=== PATIENT | female | born 1990 | race Caucasian/White ===

== ENCOUNTER 2025-06-16 14:01 | Outpatient (AMB) | payer OTHER, SELFPAY ==
--- NOTE | 2025-06-16 14:03 | MHC.OFFVIS ---
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 She has been having headaches for number of years. Her mother sometime suffered from headaches. More recently, she was having a headache almost daily. Pain was almost always on left side of the head around the eye, pressure type, moderate to very severe, associated with watering of high and droopiness of eyelid. She had tried hemc-rbv-pukurxc medicines including Tylenol and Excedrin without relief. More recently, she tried sumatriptan, which if taken early in the course of headache worked but not every time. Without medicine, her headache could continue until next day. Exposure to light made her headache worse. She also reported dizziness nausea and difficulty finding words. Other than sumatriptan, she had not tried any preventive medicine on regular basis but I would noted that she checked out verapamil on the paper given to her. She used to have Botox for cosmetic reason and reported that during that time headaches were much better. She was wondering if that could be done again. [facility] Medical History (Updated 06/16/25 @ 16:34 by Dexter Ponce MD) IBS (irritable bowel syndrome) Genital herpes Anxiety Migraine Review of Systems Const Details: Constitutional:?No fever, chills, fatigue, weight loss, or night sweats. HEENT:?No vision changes, hearing loss, nasal congestion, sore throat. Cardiovascular:?No chest pain, palpitations, orthopnea, PND, or leg swelling. Respiratory:?No cough, shortness of breath, wheezing, or hemoptysis. Gastrointestinal:?No nausea, vomiting, abdominal pain, diarrhea, or constipation. Genitourinary:?No dysuria, frequency, incontinence, or hematuria. Musculoskeletal:?No joint pain, stiffness, weakness, or muscle aches. Neurological:? Frequent headaches. Psychiatric:?No anxiety, depression, mood swings, sleep disturbance, or hallucinations. Endocrine:?No heat/cold intolerance, polydipsia, polyuria, or hair/skin changes. Hematologic/Lymphatic:?No easy bruising, bleeding, or lymphadenopathy. Integumentary (Skin):?No rash, lesions, itching, or color changes. Allergic/Immunologic:?No seasonal allergies, hives, or recurrent infections. Physical Exam Neuro Other: Mental Status: Alert and oriented to person, place, and time. Normal attention. Normal spontaneous speech, fluency, and comprehension. No obvious issues with mood and memory. Affect is appropriate. Cranial Nerves: CN II: Visual corrales full to confrontation, visual acuity intact. CN III, IV, : Pupils equal, round, reactive to light and accommodation. Extraocular movements are normal. CN V: Facial sensation is normal. CN VII: Facial movements symmetrical. CN VIII: Hearing intact to bedside conversation is normal. CN IX, X: Palate elevates symmetrically. CN XI: Shoulder shrug and head turn symmetrical. CN XII: Tongue midline without atrophy or fasciculations. Motor: Bulk and tone normal in all extremities. No significant muscle weakness in arms and legs. No drift. Reflexes: Deep tendon reflexes 2+ and symmetric. Plantar response down-going bilaterally. Coordination: Savizb-eq-orru and tgtr-pl-hwzf testing normal. No dysmetria. Gait and Station: No obvious gait abnormality. No ataxia or instability. Extrapyramidal: Full facial expressions and blinking. No rigidity. Movements are appropriate with no tremor or abnormality. Speech: Normal; no dysarthria or tremor. Assessment & Plan Assessment & Plan (1) Migraine without aura: Code(s): G43.009 - Migraine without aura, not intractable, without status migrainosus Category: Medical Qualifiers: Status migrainosus presence: without status migrainosus Intractability: intractable Qualified Code(s): G43.019 - Migraine without aura, intractable, without status migrainosus Plan Impression: Chronic migraine without aura Recommendations: 1. Reassurance and education. Detailed overview of migraine was provided. 2. Propranolol 20 mg in the morning with breakfast 3. She may continue to use sumatriptan as needed I discussed with the patient the likely diagnosis of migraines with some cluster headache characteristics. The treatment options included daily use of Propranolol for migraine prophylaxis and Sumatriptan for acute management. I explained the benefits and possible side effects of Propranolol, particularly in the context of her previous -induced hypertension. We discussed dietary considerations and the role of lifestyle modifications in managing her headaches. I informed her about the option of Botox should her symptoms not improve with current therapies and that this might be a more suitable consideration under supervision if other options are exhausted. Follow-up in four weeks was planned with nurse practitioner Lucy for evaluation of the treatment response. Medications: New propranolol 20 mg orally one a day with breakfast; 90 tabs 0RF Coding Level of Care Code New Pt Level 4 (97012) Diagnoses Intractable migraine without aura and without status migrainosus G43.019 Status migrainosus presence: without status migrainosus Intractability: intractable
--- OUTSIDE RECORDS SUMMARY | 2025-06-16 17:46 | XMS_ITS | Clinical Summary ---
Author Organization [facility] Address [address] [place] [id number] Care Team Providers Care Attending Ambulatory Care Name Role Phone Dinora Riggs Primary Care Provider [phone] Allergies No known active allergies Medications ofloxacin (OCUFLOX) 0.3 % ophthalmic solutionIndicat ions:Abrasion of right cornea, initial encounter Administer 1 drop to the right eye 4 (four) times a day. 5 mL 4 Active Additional Information Patient not taking.Reported on 05/16/2025 aspirin enteric coated (ECOTRIN LOW STRENGTH) 81 MG EC tablet Take 162 mg by mouth. Active pyridoxine (VITAMIN B-6) 100 MG tablet Take 100 mg by mouth daily. Active vitamin with iron and folic acid ( PLUS) 27-1 MG Tab Take 1 tablet by mouth daily. Active fluticasone (FloNASE) 50 mcg/spray nasal spray 1 spray into each nostril daily. Active amoxicillin-cla vulanate (AUGMENTIN) 875-125 MG per tabletIndicatio ns:Acute pharyngitis, unspecified etiology Take 1 tablet by mouth 2 (two) times a day. 20 tablet 05/26/20 25 Active Problems No known active problems Encounters Date Type Department Care Team Description 05/16/2025 6:30 PM EDT Office Visit [facility] [address] [phone] Jose Alberto Nair MD Riofrio, Tahir Naranjo PA-C Acute pharyngitis, unspecified etiology (Primary Dx); Acute sore throat 05/16/2025 Travel from Last 3 Months Social History Tobacco Use Types Packs/Day Years Used Date Smoking Tobacco: Never Smokeless Tobacco: Never Tobacco Cessation:Counseling Given: Not Answered Comments Unknown Sex and Gender Information Value Date Recorded Sex Assigned at Not on file Legal Sex Female 8:07 AM EDT Gender Identity Not on file Sexual Orientation Not on file Last Filed Vital Signs Vital Sign Reading Time Taken Comments Blood Pressure 131/89 05/16/2025 6:45 PM EDT Pulse 65 05/16/2025 6:45 PM EDT Temperature 37.1 C (98.7 F) 05/16/2025 6:45 PM EDT Respiratory Rate 19 05/16/2025 6:45 PM EDT Oxygen Saturation 97% 05/16/2025 6:45 PM EDT Inhaled Oxygen Concentration - - Weight 81.6 kg (180 lb) 05/16/2025 6:45 PM EDT Height 175.3 cm (5' 9 ) 05/16/2025 6:45 PM EDT Body Mass Index 26.58 05/16/2025 6:45 PM EDT Plan of Treatment Health Maintenance Due Date Last Done Comments Hepatitis C Virus Screening 1992 HIV Screening 2005 DTaP/Tdap/Td Vaccines (1 - Tdap) 2011 Hepatitis B Vaccines (1 of 3 - 19+ 3-dose series) 2011 Pap Smear (Ages 21-65) 2013 Influenza Vaccine 04/01/2025 06/09/2024, , 06/14/2022, Additional history exists COVID-19 Vaccine ( - season) 2025 10/11/2020, 09/15/2020 HPV Vaccines (No Doses Required) Completed Pneumococcal Vaccine: Pediatric (0-5 Years) and At-Risk Patients (6 to 49 Years) Aged Out No longer eligible based on patient's age to complete this topic Procedures Procedure Name Priority Date/Time Associated Diagnosis Comments THROAT CULTURE (GROUP A, C AND G STREP) Routine 05/16/2025 7:16 PM EDT Acute pharyngitis, unspecified etiology POCT RAPID STREP A Routine 05/16/2025 7: 09 PM EDT Acute sore throat from Last 3 Months Results * Throat Culture (Group A, C and G Strep) (05/16/2025 7:16 PM EDT) Throat Culture SEE NOTE C-Note Comment: CULTURE, THROAT Micro Number: [id number] Test Status: Final Specimen Source: Throat Specimen Quality: Adequate Result: No oropharyngeal pathogens recovered. 05/16/2025 7:16 PM EDT 05/17/2025 11:29 AM EDT Tahir Muhammad PA-C LAB AMB MICRO ORDERABLES Final Result [employer] [address] [place] [phone] * POCT Rapid Strep A (05/16/2025 7:09 PM EDT) Rapid Strep A Screen Negative Negative Lot Number [id number] Siding [employer]ator Pass Pass [facility]roat 05/16/2025 7:09 PM EDT Tahir Muhammad PA-C POINT OF CARE TEST ORDER SARA Final Result from Last 3 Months Insurance [facility] Care Teams Attending Ambulatory Care Relationship Specialty Start Date End Date Dinora Riggs PA [address] [place] [phone] PCP - General General Medicine 09/04/24
--- OUTSIDE RECORDS SUMMARY | 2025-06-16 17:46 | XMS_ITS | Encounter Summary ---
Author Organization [facility] Address [address] [place] [address] Care Team Providers Care Restaurant Team Member Name Role Phone Dinora Riggs Primary Care Provider [phone] Encounter Details Date Type Department Care Team (Late st Contact Info) Description 09/04/2024 Scanned Document [address] [place] [phone] Provider, Generic Social History Tobacco Use Types Packs/Day Years Used Date Smoking Tobacco: Never Smokeless Tobacco: Never Comments Yes Sex and Gender Information Value Date Recorded Sex Assigned at Not on file Legal Sex Female 8:07 AM EDT Gender Identity Not on file Sexual Orientation Not on file documented as of this encounter Plan of Treatment Not on file documented as of this encounter Visit Diagnoses Not on filedocumented in this encounter Care Teams Restaurant Team Member Relationship Specialty Start Date End Date Dinora Riggs PA [address] [place] [phone] PCP - General General Medicine 09/04/24 documented as of this encounter
--- OUTSIDE RECORDS SUMMARY | 2025-06-16 17:46 | XMS_ITS | Encounter Summary ---
Author Organization [facility] Address [address] [place] [address] Care Team Providers Care Military Analyst Name Role Phone Dinora Riggs Primary Care Provider [phone] Encounter Details Date Type Department Care Team (Late st Contact Info) Description 09/04/2024 Scanned Document [address] [place] [phone] Provider, Generic Social History Tobacco Use [...] on filedocumented in this encounter Care Teams Military Analyst Relationship Specialty Start Date End Date Dinora Riggs PA [address] [place] [phone] PCP - General General Medicine 09/04/24 documented as of this encounter
--- OUTSIDE RECORDS SUMMARY | 2025-06-16 17:46 | XMS_ITS ---
Author Name [facility] Organization Unknown Care Team Organization Name Specialty Phone Email Start Date End Da te [facility] Termed, PROVIDER Primary Care 07/09/202204/01
== END 2025-06-16 14:54 | disposition home or self-care (01) ==
PROVIDERS: Visit Provider Psychiatry & Neurology Neurology
DX: G43.019 Migraine without aura, intractable, without status migrainosus (principal)
CPT/HCPCS: 99204

== ENCOUNTER 2025-08-05 15:56 | Outpatient (AMB) | payer OTHER, SELFPAY ==
--- NOTE | 2025-08-05 16:10 | A.OFFVIS_ITS ---
Intake Visit Reasons: Migraine Allergies No Known Allergies Allergy (Verified 06/15/25 10:10) HPI Comments Details: Juany is a 35-year-old female patient with a past medical history of anxiety and IBS who I am meeting for the 1st time today via [email or web address] for a headache follow up. She was last seen on 06/16/[address] Ponce and offered propranolol for her migraines however she has tried propranolol in the past and never did start therapy. She tells me today that she has been dealing with migraines for a very long time including her teenage and early 20s. Her migraines are occurring 5-7 days per week most often lasting up to 6 hours but have in the past lasted up to 2 days. Her migraines are generally around the left eye and frontal area and can be moderate to severe in intensity and dull or aching but at times when they are severe can be very sharp. She will sometimes have drooping of her left eye and sensation of pressure around the left eye. She does have nausea when headaches become severe. She can also experience blurry vision with spots in her vision but does not experience any visual auras leading up to her headaches. She has tried several therapies in the past none of which has been overly beneficial. She does note that she has tried cosmetic Botox in the past which was the only time she ever had any relief from her headaches. She is no longer getting cosmetic Botox as she did stop 4 pregnancies in the past and did not feel the need to continue with cosmetic Botox therapy. She would however like to explore it as an option for her migraines. Past medication trials: Propranolol- no benefit Topiramate-possible increase in headaches and dizziness Amitriptyline- no benefit Sumatriptan -no benefit [facility] Medical History (Updated 08/05/25 @ 16:17 by Lucy Loaiza CNP) IBS (irritable bowel syndrome) Genital herpes Anxiety Migraine Review of Systems Const All systems reviewed & are unremarkable except as noted in HPI and below Neuro Denies Abnormal speech present Physical Exam Const General: cooperative, healthy appearing, comfortable, no acute distress, alert and awake Orientation/consciousness: patient oriented x3 Neuro General: patient oriented x3 Cranial nerves: Yes Bilaterally intact EOM present Cognition (Neuro): normal cognition Speech: No Abnormal speech present Telehealth Telehealth Telehealth Platform: [facility] Location of provider rendering services: practice address Location of patient: address on file Patient Identification confirmed using: Name, : Yes Telehealth method: video Patient verbally consented to treatment: Yes Patient verbally consented to billing insurance company: Yes Patient informed of any privacy concerns related to visit: Yes Minutes spent on Phone/Video with Pt.: 30 Assessment & Plan Assessment & Plan (1) Chronic migraine without aura without status migrainosus, not intractable: Code(s): G43.709 - Chronic migraine without aura, not intractable, without status migrainosus Category: Medical Plan Juany is a 35-year-old female patient with a past medical history of anxiety and IBS who I am meeting for the 1st time today via tele [employer] for a headache follow up. She has tried several option for therapy in the past as listed above. She has had only some benefit in the past with cosmetic Botox though is no longer using cosmetic Botox and has not for 1 year. This was the only time that she has ever had any partial relief of her headaches. She would like to try it indicated specifically for migraine as she has failed several therapies in the past and knows that the Botox has worked. I did also offer once monthly anti CGRP therapies as an alternative though she opted to move forward with Botox therapy given that she has had some benefit within in the past. For abortive therapy, she failed the sumatriptan and therefore I will try her on rizatriptan 10 mg as needed - trial of rizatriptan 10 mg as needed for acute therapy - start prior authorization process for Botox therapy indicated for chronic mi graine Coding Level of Care Code Tele Est Pt Level 4 (96317) Diagnoses Chronic migraine without aura without status migrainosus, not intractable G43.709
--- OUTSIDE RECORDS SUMMARY | 2025-08-05 19:45 | XMS_ITS | Encounter Summary ---
Author Organization [facility] Address [address] [place] [address] Care Team Providers Care Housing Liaison Name Role Phone Dinora Riggs Primary Care Provider [phone] Encounter Details Date Type Department Care Team (Late st Contact Info) Description 09/04/2024 Scanned Document [address] [place] [phone] Provider, Generic Social History Tobacco Use [...] on filedocumented in this encounter Care Teams Housing Liaison Relationship Specialty Start Date End Date Dinora Riggs PA [address] [place] [phone] PCP - General General Medicine 09/04/24 documented as of this encounter
--- OUTSIDE RECORDS SUMMARY | 2025-08-05 19:45 | XMS_ITS | Clinical Summary ---
Author Organization [facility] Address [address] [place] [id number] Care Team Providers Care Lumber Planer Name Role Phone Dinora Riggs Primary Care Provider [phone] Allergies No known active allergies Medications ofloxacin (OCUFLOX) 0.3 % ophthalmic solutionIndicat ions:Abrasion of right cornea, initial encounter Administer 1 drop to the right eye 4 (four) times a day. 5 mL Active Additional Information Patient not taking.Reported on [...] 1 spray into each nostril daily. Active Active Problems No known active problems Encounters Date Type Department Care Team Description 05/16/2025 6:30 PM EDT Office Visit [facility] [address] [phone] Jose Alberto Nair MD Riofrio, Andrew Ted, PA-C Acute pharyngitis, unspecified etiology (Primary Dx); Acute sore throat from Last 3 Months Social History Tobacco [...] 7:16 PM EDT) Throat Culture SEE NOTE [employer] Comment: CULTURE, THROAT Micro Number: [id number] Test Status: Final Specimen Source: Throat Specimen Quality: Adequate Result: No oropharyngeal pathogens recovered. 05/16/2025 7:16 PM EDT 05/17/2025 11:29 AM EDT Tahir Muhammad PA-C LAB AMB MICRO ORDERABLES Final Result [employer] [facility] [address] [place] [phone] * POCT Rapid Strep A (05/16/2025 7:09 PM EDT) [facility] Rapid Strep A Screen Negative Negative Lot Number [id number] Handbook Writer Pass Pass [facility] 05/16/2025 7:09 PM EDT Tahirjayda Muhammad PA-C POINT OF CARE TEST ORDER SARA Final Result from Last 3 Months Insurance [facility] Care Teams Lumber Planer Relationship Specialty Start Date End Date Dinora Riggs PA [address] [place] [phone] PCP - General General Medicine 09/04/24
--- OUTSIDE RECORDS SUMMARY | 2025-08-05 19:45 | XMS_ITS | Encounter Summary ---
Author Organization [facility] Address [address] [place] [address] Care Team Providers Care Healthcare Manager Name Role Phone Dinora Riggs Primary Care Provider Encounter Details Date Type Department Care Team (Late st Contact Info) Description 09/04/2024 Scanned Document [address] [place] [phone] Provider, Generic Social History Tobacco Use [...] on filedocumented in this encounter Care Teams Healthcare Manager Relationship Specialty Start Date End Date Dinora Riggs PA [address] [place] [phone] PCP - General General Medicine 09/04/24 documented as of this encounter
== END 2025-08-05 16:19 | disposition home or self-care (01) ==
LOC: HO.HSM 15:56
PROVIDERS: Visit Provider Nurse Practitioner
DX: G43.709 Chronic migraine without aura, not intractable, without status migrainosus (principal)
CPT/HCPCS: 99214